=== PATIENT | male | born 1975 | race Caucasian/White ===

== ENCOUNTER 2019-03-18 05:06 | Observation (INO) | payer SELFPAY ==
[2019-03-18] MEDS ORDERED: Regadenoson 0.4 MG/5 ML SYRINGE ONE (09:57)
[2019-03-18 10:02] VITALS: BMI 30.9
[2019-03-18 10:28] LABS: Troponin I Less than 0.010 ng/mL (< 0.028)
[2019-03-18] MEDS ORDERED: Acetaminophen 325 MG TAB PO PRN (10:28)
[2019-03-18] MEDS ORDERED: Nitroglycerin 0.4 MG TAB (25 Tab Bottle) PO PRN (10:29)
[2019-03-18] MEDS ORDERED: Aspirin 325 mg Enteric Coated Tablet PO SCH (11:00)
--- NOTE | 2019-03-18 12:22 | ULT ---
RIGHT UPPER QUADRANT ULTRASOUND: INDICATION: Chest pain. GERD. FINDINGS: Images of the gallbladder show a suggestion of echogenic sludge. No gallstones identified. The gall bladder wall appears normal in thickness. The common duct is normal caliber. The visualized liver i s unremarkable. The pancreas is obscured. The visualized right kidney is unremarkable. IMPRESSION: Question gallbladder sludge. No evidence of gallstones. Right upper quadrant ultrasound otherwise u nremarkable. POS: [facility]
--- NOTE | 2019-03-18 12:51 | HP ---
CHIEF COMPLAINT: Chest pain. HISTORY OF PRESENT ILLNESS: This patient is a 43-year-old male, who presented initially to the emergency department in [place]. The patient states he was in his usual state of health until mold filler hours when he woke with pain in the left chest radiating into his left arm. This pain crescendoed and started to improve actually before he got to the emergency department in [place]. He described the pain as sharp in nature. He had some associated shortness of breath and episode of nausea with vomiting and a headache. There, the patient received Zofran and aspirin. He had some T-wave changes, but negative troponins, was subsequently transferred to this facility. Subsequent troponin has been negative. The patient reports currently that his symptoms are essentially resolved and rates his pain is 0 to 1. REVIEW OF SYSTEMS: The patient has had frequent belching. He has frequent heartburn symptoms and it is not uncommon for him to have a fair amount of belching with those episodes. He takes the Zantac at home daily because he feels like he needs it daily and symptoms are triggered by virtually anything that he eats. He also reports snoring. His reports that she is highly confident that he has some sleep apnea. He has generalized fatigue. PAST MEDICAL HISTORY: Only notable for reflux symptoms. He does not have a primary care provider at present. PAST SURGICAL HISTORY: Left hand surgery, hemorrhoidectomy. FAMILY HISTORY: His father had significant coronary artery disease starting in his 40s. His mother has throat cancer. SOCIAL HISTORY: The patient was a heavy smoker, quit about 1 month ago. Now, continues to use spit tobacco. He drinks about 3 beers per day on average. 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 He is . He is full code and his is his surrogate decision maker. The patient also admits to generally poor diet. ALLERGIES: PENICILLIN. MEDICATIONS: Zantac OTC. PHYSICAL EXAMINATION: VITAL SIGNS: Temperature 97.5, pulse 62, respirations 16, O2 saturation 98% on room air, and blood pressure 127/86. GENERAL APPEARANCE: Age-appropriate male. He is still a bit somnolent, but does awaken appropriately and converse appropriately. He is pleasant and cooperative. HEENT: PERRL. He has no OP lesions, but he has very small oral airway with large tongue in the posterior pharynx. Pharynx is not easily visible. NECK: Thick. HEART: Regular rate and rhythm without murmurs, gallops, or rubs. LUNGS: Clear bilaterally with no wheezes or rales. ABDOMEN: Soft, nontender, and nondistended with positive bowel sounds. No masses. No organomegaly. EXTREMITIES: No cyanosis, clubbing, or edema. PSYCH: Normal affect and behavior. NEURO: The patient spontaneously moves all extremities with no evidence of focal deficits. LABORATORY DATA: White count 8.6, hemoglobin 12.5, and platelets 183. Sodium 139, potassium 3.7, chloride 103, CO2 of 25, BUN 12, creatinine 0.99, glucose 94, AST 55, and ALT 46. Troponin is less than 0.01 now x3. BNP is 29.6. IMAGING DATA: Chest x-ray is negative. EKG shows sinus rhythm with no ST or T-wave changes here. IMPRESSION AND PLAN: 1. Chest pain. The patient now has his 3rd negative troponin. BNP is normal. However, the patient has significant risk factors for coronary artery disease including family history and tobacco abuse as well as some obesity. We will obtain a stress test. This certainly could be GI related as well. 2. Gastroesophageal reflux disease. The patient has daily and significant symptoms of gastroesophageal reflux disease, which could be responsible for his current pain syndrome. We will give him pantoprazole. Encouraged him to establish with a PCP. May need outpatient treatment or referral to GI for endoscopy especially in light of the low level anemia that he has here today. 3. Elevated liver enzyme, likely related to fatty liver or his alcohol consumption. We will obtain an ultrasound of the right upper quadrant. 4. Normocytic anemia. His MCV is in the normal range on the lower side given his frequent reflux symptoms, the possibility of this could be related. We will at least need outpatient followup and repeat labs. Job ID: [id number]
--- NOTE | 2019-03-18 15:06 | NM ---
EXAM: CARDIAC SPECT HISTORY: Chest pain TECHNIQUE: A myocardial perfusion scan was performed using the single isotope 1 day protocol with edu hnetium 99m sestamibi. [10 mCi] was injected intravenously for the rest exam followed by 30 mCi for the stress study. Pharmacologic stress with Lexiscan was monitored and interpreted by Dr. Mccallum FINDINGS: Homogeneous tracer distribution is seen in the myocardial segments on stress and rest image s without fixed or reversible defects. Gated SPECT LVEF: 72% Wall motion exam: Normal IMPRESSION: Normal myocardial perfusion scan
[2019-03-18 16:12] VITALS: BP 134/79; TEMP 97.5
[2019-03-19] MEDS ORDERED: Aspirin 325 mg Enteric Coated Tablet PO SCH (09:00)
--- NOTE | 2019-03-19 14:19 | DIS ---
DATE OF ADMISSION: 03/18/2019 DATE OF DISCHARGE: 03/18/2019 DISCHARGE DIAGNOSES: 1. Chest pain. 2. Gastroesophageal reflux. 3. Elevated liver enzymes. 4. Normocytic anemia. 5. Obesity. HISTORY OF PRESENT ILLNESS: The patient is a 43-year-old male who presented via the emergency department reporting chest pain. He had negative initial workup including negative troponin. HOSPITAL COURSE: The patient was admitted to the hospital on telemetry, maintained that way without any significant arrhythmias noted. He did report significant reflux symptoms. However, the patient prior had some slight elevation of his liver enzymes. With those findings, the patient underwent a nuclear medicine stress test after he had 3 negative troponins. This revealed a normal scan with an ejection fraction of 72%. He had an ultrasound of his abdomen in the right upper quadrant, which revealed some bile sludge, but otherwise unremarkable gallbladder and liver, with that the patient was felt to be stable for discharge. Had a long conversation regarding his need to be on an anti-reflux diet and take PPIs for his reflux symptoms. DISPOSITION: The patient is discharged to home in good condition. He will be on omeprazole 40 mg p.o. daily. He will discontinue the ranitidine that he was taking previously. ACTIVITY: As tolerated. DIET: He will be on a regular anti-reflux diet and should limit his alcohol intake. FOLLOWUP: He is to establish with a primary care provider and he can return to the hospital should he have any problems prior to that time. Job ID: [id number]
== END 2019-03-18 18:05 | disposition home or self-care (01) ==
LOC: ERS 05:06 → ERHOLD 06:17 → 2SE 08:08
PROVIDERS: ADMIT Hospitalist; ATTEND Hospitalist
DX: R07.9 Chest pain, unspecified (principal); K21.9 Gastro-esophageal reflux disease without esophagitis; D64.9 Anemia, unspecified; R94.5 Abnormal results of liver function studies; F17.290 Nicotine dependence, other tobacco product, uncomplicated; F90.9 Attention-deficit hyperactivity disorder, unspecified type; E66.9 Obesity, unspecified; Z68.30 Body mass index [BMI] 30.0-30.9, adult; Z79.899 Other long term (current) drug therapy; Z88.0 Allergy status to penicillin
CPT/HCPCS: 36415; 76705; 78452; 93005; 93017; A9500; G0378; J2785